=== PATIENT | male | born 1970 | race Caucasian/White ===

== ENCOUNTER 2017-02-11 21:52 | Emergency (ER) | payer MEDICARE, OTHER ==
[~2017-02-11] VITALS: Ht 177.8 cm; Wt 124.7 kg
[~2017-02-11 21:52] MED LIST: AMLODIPINE; CYCL-10 PO; GLIP5TAB13 PO; HYDR25TA4 PO; K LOR; LOSA50TA3 PO; LOVA20TA2 PO; METF-305 PO; ONGLYZA; TYLENOL #3 PO
[2017-02-11 21:55] VITALS: BP_SYST 170
[2017-02-11] MEDS ORDERED: DEXTROSE 50% JECT 50 ML DISP.SYRIN IVP ONE (22:15)
[2017-02-11] MEDS ORDERED: DEXTROSE 50% JECT 50 ML DISP.SYRIN ONE (22:20)
[2017-02-12 00:40] LABS: BASOPHILS # (AUTO) 0.1 K/uL (0.0-0.2); BASOPHILS % (AUTO) 0.5 % (0.0-2.0); CALCIUM 8.9 mg/dL (8.4-11.0); EOSINOPHILS # (AUTO) 0.9 K/uL (0.0-0.4); EOSINOPHILS % (AUTO) 7.4 % (0.0-4.0); HEMATOCRIT 43.7 % (36-54); HEMOGLOBIN 13.8 g/dL (14.0-18.0); LYMPHOCYTES % (AUTO) 16.6 % (20.5-51.5); MEAN CORPUSCULAR HEMOGLOBIN 24 pg (27-31); MEAN CORPUSCULAR HGB CONC 32 % (32-36); MEAN CORPUSCULAR VOLUME 77 fL (79.0-98.0); MONOCYTES % (AUTO) 7.7 % (1.7-9.3); NEUTROPHILS # (AUTO) 8.3 K/uL (1.8-7.7); NEUTROPHILS % (AUTO) 67.8 % (40.0-70.0); PLATELET COUNT (AUTO) 259 K/uL (130-430); POTASSIUM 3.1 mmol/L (3.5-5.1); RED BLOOD CELL COUNT(AUTO) 5.67 MIL/uL (4.2-6.2); RED CELL DISTRIBUTION WIDTH 12.3 % (9.0-15.0); WHITE BLOOD COUNT (AUTO) 12.3 K/uL (4.8-10.8)
[2017-02-12 00:41] LABS: CREATININE 2.2 mg/dL (0.55-1.30)
[2017-02-12 00:47] LABS: ALBUMIN 3.8 g/dL (3.4-4.8); TOTAL BILIRUBIN 0.2 mg/dL (0.0-1.0)
[2017-02-12 01:14] LABS: BILIRUBIN,URINE NEGATIVE (NEGATIVE); CLARITY/URINE CLEAR (CLEAR); COLOR,URINE YELLOW (YELLOW); GLUCOSE,URINE NEGATIVE (NEGATIVE); KETONES,URINE NEGATIVE (NEGATIVE); LEUKOCYTE ESTERASE ,URINE NEGATIVE (NEGATIVE); NITRITE, URINE NEGATIVE (NEGATIVE); PH,URINE 5.5 (5.0-8.0); PROTEIN URINE 2+ (NEGATIVE); UROBILINOGEN,URINE 0.2 (0.2-1.0)
[2017-02-12 01:19] LABS: BLOOD, URINE TRACE (NEGATIVE)
[2017-02-12 01:31] LABS: BACTERIA,URINE FEW /HPF (None Seen); MUCUS,URINE 1+ /LPF (None Seen)
[2017-02-12] MEDS ORDERED: POTASSIUM CHLORIDE 10 MEQ TAB.PRT.SR PO ONE (02:30)
[2017-02-12] MEDS ORDERED: POTASSIUM CHLORIDE 10 MEQ TAB.PRT.SR ONE (04:36)
[2017-02-12 04:45] VITALS: BP_SYST 153
== END 2017-02-12 04:45 | disposition short-term general hospital (02) ==
LOC: SED 21:52
DX: E11.649 Type 2 diabetes mellitus with hypoglycemia without coma (principal); I10 Essential (primary) hypertension; E78.00 Pure hypercholesterolemia, unspecified; Z88.1 Allergy status to other antibiotic agents; Z79.899 Other long term (current) drug therapy
CPT/HCPCS: 36415; 80053; 81000-TC; 82962; 85025; 96374; 99285

== ENCOUNTER 2020-06-16 04:27 | Emergency (ER) | payer MEDICARE, OTHER, SELFPAY ==
[~2020-06-16] VITALS: Ht 188 cm; Wt 145.1 kg
[~2020-06-16 04:27] MED LIST changes: -METF-305 PO; +METF-381 PO
[2020-06-16 04:30] VITALS: BP_SYST 166
--- NOTE | 2020-06-16 04:30 | NUR ---
Placed in room 3. Placed on school bus monitor, blood pressure machine and pulse oximeter. To gown for exam. Side rails up.
--- NOTE | 2020-06-16 04:32 | NUR ---
ER Dr. Noriega at bedside examining patient.
--- NOTE | 2020-06-16 04:35 | NUR ---
PT BIBA AFTER BEING FOUND UNRESPONSIVE AT HOME. PT WAS SLEEPING WHEN FATHER CHECKED BS WHICH WAS 32. ON SCENE PT WAS GIVEN GLUCAGON WITH NO RESPONSE. THEN WAS GIVEN D10 250ML AND BECAME REPONSIVE. PT HAS A HX OF DM, CKD, COPD. UPON ARRIVAL TO [facility] PT AAOX4, V/S STABLE
[2020-06-16] MEDS ORDERED: NACL 0.9% 1,000 ML IV ONE (04:45)
--- NOTE | 2020-06-16 05:07 | NUR ---
# 20 gauge angiocath placed to L HAND. Use of asceptic technique. Opsite placed over site. Blood return noted. Blood for lab drawn from site. Flushed with 10 cc of normal saline. No evidence of infiltration noted. Patient tolerated well.
--- NOTE | 2020-06-16 05:15 | NUR ---
PT GIVEN URINAL AND ENCOURAGED TO VOID, PT ACKNOWLEDGED
[2020-06-16 05:34] LABS: BASOPHILS # (AUTO) 0.1 K/uL (0.0-0.2); BASOPHILS % (AUTO) 0.5 % (0.0-2.0); EOSINOPHILS # (AUTO) 0.3 K/uL (0.0-0.4); EOSINOPHILS % (AUTO) 1.5 % (0.0-4.0); HEMATOCRIT 33.8 % (36-54); HEMOGLOBIN 10.6 g/dL (14.0-18.0); LYMPHOCYTES # (AUTO) 1.1 K/uL (1.0-5.5); LYMPHOCYTES % (AUTO) 5.8 % (20.5-51.5); MEAN CORPUSCULAR HEMOGLOBIN 24 pg (27-31); MEAN CORPUSCULAR HGB CONC 32 % (32-36); MEAN CORPUSCULAR VOLUME 78 fL (79.0-98.0); MONOCYTES # (AUTO) 0.9 K/uL (0.0-1.0); MONOCYTES % (AUTO) 4.7 % (1.7-9.3); NEUTROPHILS % (AUTO) 87.5 % (40.0-70.0); PLATELET COUNT (AUTO) 164 K/uL (130-430); RED BLOOD CELL COUNT(AUTO) 4.36 MIL/uL (4.2-6.2); RED CELL DISTRIBUTION WIDTH 14.2 % (9.0-15.0); WHITE BLOOD COUNT (AUTO) 18.3 K/uL (4.8-10.8)
--- NOTE | 2020-06-16 05:46 | NUR ---
SHEKHAR - BS 108. AWARE.
[2020-06-16 05:47] LABS: ALBUMIN 2.8 g/dL (3.4-4.8); POTASSIUM 3.5 mmol/L (3.5-5.1); TOTAL BILIRUBIN 0.2 mg/dL (0.0-1.0)
--- NOTE | 2020-06-16 05:50 | NUR ---
COVID SWAB DONE AND SENT TO LAB
--- NOTE | 2020-06-16 05:54 | NUR ---
PT GIVEN 4OZ APPLE JUICE WITH WATER
[2020-06-16 05:55] LABS: CALCIUM 5.9 mg/dL (8.4-11.0)
[2020-06-16 05:56] LABS: CREATININE 7.64 mg/dL (0.55-1.30)
--- NOTE | 2020-06-16 06:07 | NUR ---
PT GAVE CONSET TO BARBER PT'S SYEDA FOR UPDATE
[2020-06-16] MEDS ORDERED: VANCOMYCIN HCL 1,000 MG in NS 250 ML IV ONE (06:30)
[2020-06-16 06:41] LABS: BILIRUBIN,URINE NEGATIVE (NEGATIVE); BLOOD, URINE 2+ (NEGATIVE); CLARITY/URINE CLEAR (CLEAR); COLOR,URINE YELLOW (YELLOW); GLUCOSE,URINE TRACE (NEGATIVE); KETONES,URINE NEGATIVE (NEGATIVE); LEUKOCYTE ESTERASE ,URINE NEGATIVE (NEGATIVE); NITRITE, URINE NEGATIVE (NEGATIVE); PH,URINE 5.5 (5.0-8.0); PROTEIN URINE 2+ (NEGATIVE); UROBILINOGEN,URINE 0.2 (0.2-1.0)
--- NOTE | 2020-06-16 06:58 | NUR ---
PORTABLE X-RAY AT THE BEDSIDE
[2020-06-16 06:59] LABS: BACTERIA,URINE RARE /HPF (None Seen)
[2020-06-16] MEDS ORDERED: VANCOMYCIN HCL 1000 MG/VIAL IV ONE (06:59)
--- NOTE | 2020-06-16 07:11 | NUR ---
REPORT GIVEN TO JING NELSON FOR CONTINUING CARE
--- NOTE | 2020-06-16 07:30 | NUR ---
Patient is resting comfortably in bed, respirations even and unlabored, and speaking in full sentences. VSS, denied any pain at this time.
--- NOTE | 2020-06-16 08:36 | NUR ---
Report given to JING Rodriguez of [facility] at [phone]. Accepting physician is Dr. Mulugeta Pimentel.
[2020-06-16 09:15] VITALS: BP_SYST 146
--- NOTE | 2020-06-16 09:16 | NUR ---
Patient to be transferred to [facility]. Is being transferred due to higher level of care. Receiving facility has accepting physician and available space. ER physician has signed transfer form. Patient or responsible republican has agreed to transfer and signed form. Patient belongings inventoried and will be sent with patient. Copy of nursing notes, lab reports, EKG, Physicians Orders and X-rays to be sent with patient. Report called to at receiving facility. Receiving physician is Dr. Mulugeta Pimentel. [facility] ambulance service has been called for transfer. ETA is 0915.
== END 2020-06-16 04:30 | disposition short-term general hospital (02) ==
LOC: SED 04:27
DX: I12.9 Hypertensive chronic kidney disease with stage 1 through stage 4 chronic kidney disease, or unspecified chronic kidney disease (principal); E10.22 Type 1 diabetes mellitus with diabetic chronic kidney disease; N18.9 Chronic kidney disease, unspecified; E10.649 Type 1 diabetes mellitus with hypoglycemia without coma; J44.9 Chronic obstructive pulmonary disease, unspecified; E78.00 Pure hypercholesterolemia, unspecified; F41.9 Anxiety disorder, unspecified; E66.9 Obesity, unspecified; Z79.899 Other long term (current) drug therapy; Z88.1 Allergy status to other antibiotic agents; Z20.828 Contact with and (suspected) exposure to other viral communicable diseases
CPT/HCPCS: 36415; 71045; 80053; 81000; 82962; 84484; 85025; 87040; 87426; 93005; 96365; 96366; 99291; J3370; J7030

== ENCOUNTER 2020-07-07 07:24 | Emergency (ER) | payer MEDICARE, OTHER ==
[~2020-07-07] VITALS: Ht 189.2 cm; Wt 145.1 kg
[2020-07-07 07:24] VITALS: BP_SYST 138
--- NOTE | 2020-07-07 07:24 | NUR ---
Patient to ER bed 02 to gown for evaluation. Side rails up. Report given to JING SALAZAR.
--- NOTE | 2020-07-07 07:25 | NUR ---
Pt BIB ALS for hypoglycemic event, pt blood sugar in field 30 Dextrose administered and glucose 55 upon receipt. Pt AOx3, able to ambulate from gurney to bed, no distress noted, awaiting MD.
--- NOTE | 2020-07-07 07:35 | NUR ---
ER at bedside examining patient.
[2020-07-07 08:21] LABS: CALCIUM 7.9 mg/dL (8.4-11.0); CREATININE 6.63 mg/dL (0.55-1.30); POTASSIUM 4.4 mmol/L (3.5-5.1)
--- NOTE | 2020-07-07 08:35 | NUR ---
Pt resting in [facility], breakfast eaten
--- NOTE | 2020-07-07 08:50 | NUR ---
Glucose recheck 95
[2020-07-07 09:27] VITALS: BP_SYST 142
== END 2020-07-07 09:27 | disposition home or self-care (01) ==
LOC: SED 07:24
DX: E11.649 Type 2 diabetes mellitus with hypoglycemia without coma (principal); J44.9 Chronic obstructive pulmonary disease, unspecified; I10 Essential (primary) hypertension; E11.29 Type 2 diabetes mellitus with other diabetic kidney complication; N28.9 Disorder of kidney and ureter, unspecified; E78.00 Pure hypercholesterolemia, unspecified; F41.9 Anxiety disorder, unspecified; Z79.899 Other long term (current) drug therapy; Z88.1 Allergy status to other antibiotic agents
CPT/HCPCS: 36415; 80048; 82962; 99283

== ENCOUNTER 2023-07-28 18:39 | Emergency (ER) | payer MEDICARE, OTHER ==
[~2023-07-28] VITALS: Ht 188 cm; Wt 140.6 kg
[~2023-07-28 18:39] MED LIST changes: -CYCL-10 PO; +CYCL10TA24 PO; +LOSA-413 PO; -LOSA50TA3 PO
[2023-07-28 18:53] VITALS: BP_SYST 122; PULSE 99; RESP 20; TEMP 98.3; O2SAT 96
[2023-07-28 20:57] VITALS: BP_SYST 104; PULSE 95; RESP 20; TEMP 97.7; O2SAT 96
== END 2023-07-28 20:42 | disposition home or self-care (01) ==
LOC: SED 18:39
DX: S90.31XA Contusion of right foot, initial encounter (principal); I10 Essential (primary) hypertension; E11.9 Type 2 diabetes mellitus without complications; J44.9 Chronic obstructive pulmonary disease, unspecified; Z88.1 Allergy status to other antibiotic agents; Z79.84 Long term (current) use of oral hypoglycemic drugs; Z79.899 Other long term (current) drug therapy; W51.XXXA Accidental striking against or bumped into by another person, initial encounter; Y93.89 Activity, other specified; Y92.89 Other specified places as the place of occurrence of the external cause; Y99.8 Other external cause status
CPT/HCPCS: 99283

== ENCOUNTER 2024-04-16 20:12 | Emergency (ER) | payer MEDICARE, OTHER ==
[~2024-04-16] VITALS: Ht 188 cm; Wt 145.1 kg
[~2024-04-16 20:12] MED LIST changes: -GLIP5TAB13 PO; +GLIP5TAB23 PO; -HYDR25TA4 PO; -METF-381 PO
[2024-04-16 20:30] VITALS: BP_SYST 176; PULSE 93; RESP 18; TEMP 98.8; O2SAT 94
[2024-04-16] MEDS: BENZONATATE 100 MG CAPSULE (TESSALON) PO ONE (21:17)
[2024-04-16] MEDS: KETOROLAC TROMETHAMINE 30 MG VIAL IM ONE (21:23)
[2024-04-16] MEDS: guaiFENesin/DEXTROMETHORPHAN 10 ML UDC PO ONE (21:24)
[2024-04-16] MEDS ORDERED: NIRM1TAB9 PO (21:44)
[2024-04-16] MEDS ORDERED: ACET325T PO (21:44)
[2024-04-16] MEDS ORDERED: BENZ100C92 PO (21:44)
[2024-04-16 22:00] VITALS: BP_SYST 165; PULSE 89; RESP 18; TEMP 98; O2SAT 95
== END 2024-04-16 22:00 | disposition home or self-care (01) ==
LOC: SED 20:12
DX: U07.1 COVID-19 (principal); J44.9 Chronic obstructive pulmonary disease, unspecified; R07.81 Pleurodynia; I12.9 Hypertensive chronic kidney disease with stage 1 through stage 4 chronic kidney disease, or unspecified chronic kidney disease; E11.22 Type 2 diabetes mellitus with diabetic chronic kidney disease; N18.9 Chronic kidney disease, unspecified; F41.9 Anxiety disorder, unspecified; E66.8 Other obesity; Z68.41 Body mass index [BMI] 40.0-44.9, adult; Z88.1 Allergy status to other antibiotic agents; Z79.899 Other long term (current) drug therapy; Z79.2 Long term (current) use of antibiotics
CPT/HCPCS: 99283; 96372; J1885

== ENCOUNTER 2024-06-05 23:26 | Emergency (ER) | payer MEDICARE, OTHER ==
[~2024-06-05] VITALS: Ht 208.3 cm; Wt 142.9 kg
[~2024-06-05 23:26] MED LIST changes: +ACET325T PO; -AMLODIPINE; +AMLODIPINE PO; +BENZ100C92 PO; +NIRM1TAB9 PO
[2024-06-05 23:35] VITALS: BP_SYST 157; PULSE 93; RESP 20; TEMP 97.3; O2SAT 94
[2024-06-06] MEDS: ACETAMINOPHEN 500 MG TABLET PO ONE (02:10)
[2024-06-06 02:28] LABS: BASOPHILS % (AUTO) 0.8 % (0.0-2.0); EOSINOPHILS # (AUTO) 0.3 K/uL (0.0-0.4); EOSINOPHILS % (AUTO) 5.3 % (0.0-4.0); HEMATOCRIT 34.5 % (36-54); HEMOGLOBIN 11.6 g/dL (14.0-18.0); LYMPHOCYTES # (AUTO) 1.8 K/uL (1.0-5.5); MEAN CORPUSCULAR HEMOGLOBIN 28 pg (27-31); MEAN CORPUSCULAR HGB CONC 34 % (32-36); MEAN CORPUSCULAR VOLUME 82 fL (79.0-98.0); MONOCYTES # (AUTO) 0.7 K/uL (0.0-1.0); MONOCYTES % (AUTO) 10.9 % (1.7-9.3); NEUTROPHILS # (AUTO) 3.2 K/uL (1.8-7.7); PLATELET COUNT (AUTO) 179 K/uL (130-430); RED BLOOD CELL COUNT(AUTO) 4.21 MIL/uL (4.2-6.2); RED CELL DISTRIBUTION WIDTH 15.9 % (9.0-15.0)
[2024-06-06 02:45] LABS: ANION GAP 12 (5-15); CALCIUM 7.9 mg/dL (8.4-11.0); CARBON DIOXIDE 30 mmol/L (23-29); CHLORIDE 94 mmol/L (98-107); GFR AFRICAN AMERICAN 8 mL/min (>90); SODIUM SERUM 136 mmol/L (136-145); UREA NITROGEN, BLOOD 60 mg/dL (8-21)
[2024-06-06 02:48] LABS: GFR NON AFRICAN-AMERICAN 7 mL/min (>90)
[2024-06-06 02:49] LABS: CREATININE 9.01 mg/dL (0.55-1.30); GLUCOSE 435 mg/dL (74-106)
[2024-06-06 05:08] VITALS: TEMP 98; O2SAT 94
[2024-06-06] MEDS: INSULIN REGULAR, HUMAN 10 UNITS/0.1 ML, 3 ML VIAL IVP ONE (05:47)
[2024-06-06] MEDS ORDERED: CALCIUM CHLORIDE 1 GM/10 ML DISP.SYRIN (14 mEq Ca++/SYR) ONE (05:56)
[2024-06-06] MEDS: CALCIUM CHLORIDE 1 GM in NS 100 ML IV ONE (05:58)
[2024-06-06 07:18] VITALS: BP_SYST 153; PULSE 78; RESP 18
== END 2024-06-06 07:09 | disposition home or self-care (01) ==
LOC: SED 23:26
DX: E10.40 Type 1 diabetes mellitus with diabetic neuropathy, unspecified (principal); E83.51 Hypocalcemia; R20.0 Anesthesia of skin; E83.52 Hypercalcemia; I12.0 Hypertensive chronic kidney disease with stage 5 chronic kidney disease or end stage renal disease; E10.22 Type 1 diabetes mellitus with diabetic chronic kidney disease; N18.6 End stage renal disease; J44.9 Chronic obstructive pulmonary disease, unspecified; E78.00 Pure hypercholesterolemia, unspecified; F41.9 Anxiety disorder, unspecified; E66.9 Obesity, unspecified; R94.31 Abnormal electrocardiogram [ECG] [EKG]; Z20.822 Contact with and (suspected) exposure to COVID-19; Z99.2 Dependence on renal dialysis; Z88.1 Allergy status to other antibiotic agents; Z79.899 Other long term (current) drug therapy; Z79.2 Long term (current) use of antibiotics
CPT/HCPCS: 99285; 87426; 80048; 83880; 83735; 85025; 84484; 36415; 82948; 96365; 70450; 71045; 96375; 93005; J1815

== ENCOUNTER 2024-06-07 22:03 | Emergency (ER) | payer MEDICARE, OTHER ==
[~2024-06-07] VITALS: Ht 188 cm; Wt 140.6 kg
[2024-06-07 22:03] VITALS: BP_SYST 160; PULSE 93; RESP 18; TEMP 98.1; O2SAT 94
[~2024-06-07 22:03] MED LIST changes: -GLIP5TAB23 PO; -K LOR; -NIRM1TAB9 PO; -ONGLYZA
[2024-06-07] MEDS: AZITHROMYCIN 500 MG in NS 250 ML IV ONE (23:45)
[2024-06-08 00:03] LABS: ALBUMIN 3.3 g/dL (3.4-4.8); BILIRUBIN,DIRECT 0.1 mg/dL (0.0-0.3); CALCIUM 8.2 mg/dL (8.4-11.0); POTASSIUM 5.2 mmol/L (3.5-5.1); TOTAL BILIRUBIN 0.4 mg/dL (0.0-1.0); TOTAL PROTEIN, SERUM 7.3 g/dL (6.4-8.3)
[2024-06-08 00:07] LABS: BASOPHILS % (AUTO) 0.7 % (0.0-2.0); EOSINOPHILS # (AUTO) 0.4 K/uL (0.0-0.4); EOSINOPHILS % (AUTO) 6.5 % (0.0-4.0); HEMATOCRIT 33.6 % (36-54); HEMOGLOBIN 11.1 g/dL (14.0-18.0); LYMPHOCYTES # (AUTO) 1.5 K/uL (1.0-5.5); LYMPHOCYTES % (AUTO) 26.3 % (20.5-51.5); MEAN CORPUSCULAR HEMOGLOBIN 27 pg (27-31); MEAN CORPUSCULAR HGB CONC 33 % (32-36); MEAN CORPUSCULAR VOLUME 82 fL (79.0-98.0); MONOCYTES # (AUTO) 0.6 K/uL (0.0-1.0); MONOCYTES % (AUTO) 9.9 % (1.7-9.3); NEUTROPHILS # (AUTO) 3.2 K/uL (1.8-7.7); NEUTROPHILS % (AUTO) 56.6 % (40.0-70.0); PLATELET COUNT (AUTO) 159 K/uL (130-430); RED BLOOD CELL COUNT(AUTO) 4.13 MIL/uL (4.2-6.2); RED CELL DISTRIBUTION WIDTH 15.5 % (9.0-15.0); WHITE BLOOD COUNT (AUTO) 5.7 K/uL (4.8-10.8)
[2024-06-08 00:10] LABS: CREATININE 9.06 mg/dL (0.55-1.30)
[2024-06-08] MEDS: INSULIN REGULAR, HUMAN 100 UNITS/ML, 3 ML VIAL SUBCUT ONE (00:15)
[2024-06-08] MEDS: cefTRIAXone 1 GM IVPB PREMIX 50 ML IV ONE (01:28)
[2024-06-08] MEDS ORDERED: AZITHROMYCIN 500 MG/VIAL (ZITHROMAX) IV ONE (01:55)
[2024-06-08] MEDS: ONDANSETRON HCL 4 MG/2 ML VIAL IVP ONE (03:06)
[2024-06-08 06:37] VITALS: BP_SYST 166; PULSE 94; RESP 18; TEMP 98.6; O2SAT 98
== END 2024-06-08 06:55 | disposition short-term general hospital (02) ==
LOC: SED 22:03
DX: J18.9 Pneumonia, unspecified organism (principal); R06.02 Shortness of breath; I12.0 Hypertensive chronic kidney disease with stage 5 chronic kidney disease or end stage renal disease; E11.22 Type 2 diabetes mellitus with diabetic chronic kidney disease; N18.6 End stage renal disease; J44.0 Chronic obstructive pulmonary disease with (acute) lower respiratory infection; F41.9 Anxiety disorder, unspecified; E78.00 Pure hypercholesterolemia, unspecified; E66.01 Morbid (severe) obesity due to excess calories; Z20.822 Contact with and (suspected) exposure to COVID-19; Z68.39 Body mass index [BMI] 39.0-39.9, adult; Z90.49 Acquired absence of other specified parts of digestive tract; Z99.2 Dependence on renal dialysis; Z88.1 Allergy status to other antibiotic agents; Z79.899 Other long term (current) drug therapy
CPT/HCPCS: 99285; 71045; 87426; 80076; 80048; 85025; 87040; 36415; 82948; 83605; 96365; 96367; 96375; J0456; J0696; J2405; 96366; 96368